=== PATIENT | female | born 1950 | race Caucasian/White ===

== ENCOUNTER 2024-07-12 09:13 | Outpatient (CLI) | payer MEDICARE ==
[~2024-07-12] VITALS: Ht 167.6 cm; Wt 65.0 kg
[2024-07-12] MEDS ORDERED: aminophylline 500mg/20ml vial IV ONE (11:00)
[2024-07-12 11:01] VITALS: BP 160/68; PULSE 60; RESP 16; O2SAT 97
[2024-07-12 11:18] VITALS: BP 169/67; PULSE 86; RESP 16; O2SAT 98
[2024-07-12 11:19] VITALS: BP 141/58; PULSE 92; RESP 16; O2SAT 98
[2024-07-12 11:20] VITALS: BP 145/61; PULSE 90; RESP 16; O2SAT 97
[2024-07-12 11:21] VITALS: BP_SYST 150; BP_DIAS 61; BP_DIAS 63; PULSE 86; PULSE 88; RESP 16; O2SAT 98; O2SAT 99
[2024-07-12 11:22] VITALS: BP 148/64; PULSE 88; RESP 16; O2SAT 99
[2024-07-12] MEDS: regadenoson 0.4mg/5ml syringe IV ONE (11:25)
== END 2024-07-12 23:59 | disposition home or self-care (01) ==
LOC: NM 09:13
PROVIDERS: ATTEND Internal Medicine Interventional Cardiology
DX: R94.39 Abnormal result of other cardiovascular function study (principal); R07.89 Other chest pain
CPT/HCPCS: 78452; 93017; A9500; J0280; J2785